=== PATIENT | female | born 1970 | race Caucasian/White ===

== ENCOUNTER 2016-08-31 08:47 | Emergency (ER) | payer OTHER ==
--- NOTE | 2016-09-01 12:40 | ER ---
ADMIT: 08/31/2016 RM/LOC: ER [facility] MR#: [id number] [facility] [id number] [place], [place] [id number] ELISABETH ROMAN [address] [place] [address] Emergency Room Report SEX: F AGE: 45 : 1970 DATE: 08/31/2016 ADDENDUM: A 45-year-old white female coming in with abdominal pain that she has had probably for a month kind of right lower quadrant. CT scan was negative. She has had her gallbladder out. CBC, chemistry, lipase were all negative. We did an EKG because she says sometimes it radiates up into her chest. This time, not really finding anything. She does have a history of hyperlipidemia, history of anemia. We put her on tramadol 50 q.6h, #30 p.r.n. pain. She has an appointment with her doctor on Sunday which she should keep. We did give her just a touch of the Toradol and Zofran here and that seemed to help. CONDITION ON DISCHARGE: Good. Wolf Mckay MD/ suzie JOB #: [id number] CC: Wolf Mckay MD, Attending Physician
== END 2016-08-31 11:55 | disposition home or self-care (01) ==
LOC: ER 08:47
DX: R10.84 Generalized abdominal pain (principal); E78.5 Hyperlipidemia, unspecified; E78.00 Pure hypercholesterolemia, unspecified; Z90.49 Acquired absence of other specified parts of digestive tract; Z86.2 Personal history of diseases of the blood and blood-forming organs and certain disorders involving the immune mechanism; Z88.0 Allergy status to penicillin; Z88.5 Allergy status to narcotic agent; Z79.899 Other long term (current) drug therapy